=== PATIENT | female | born 1975 | race Caucasian/White ===

== ENCOUNTER 2019-10-08 17:39 | Inpatient (IN) | payer OTHER ==
[~2019-10-08] VITALS: Ht 154.9 cm; Wt 77.1 kg
[2019-10-08 17:39] VITALS: BP 121/72
--- NOTE | 2019-10-08 18:03 | NUR ---
BIBTrish W C/O SEVERE 10/10 BACK PAIN AFTER GETTING OUT OF HER CAR AND FEELING SOMETHING "POP" IN HER UPPER BACK. PT REPORTS HX OF BREAST CA, BONE CA & LIVER CA. PT REPORTS CHRONIC BACK PAIN BUT IT IS USUALLY TOLERABLE. PT STATES SHE IS ABLE TO MOVE BUE & BLE WITH PAIN. DENIES NUMBNESS/TINGLING/INCONTINENCE. PT RECEIVED 150 FENTANYL IN FIELD, WHICH PROVIDED MUCH RELIEF. BED IN LOW POSITION, SIDE RAIL UP X1, AT BEDSIDE.
--- NOTE | 2019-10-08 18:05 | NUR ---
DR. GRIFFITHS AT BEDSIDE
[2019-10-08] MEDS ORDERED: MORPHINE SULFATE 2 MG/ML SYR IVP ONE (18:20)
--- NOTE | 2019-10-08 18:43 | NUR ---
PT TAKEN TO CT VIA [facility] AT THIS TIME.
[2019-10-08] MEDS ORDERED: ONDANSETRON 4 MG/2 ML VIAL IVP ONE (20:25)
[2019-10-08] MEDS ORDERED: MORPHINE SULFATE 4 MG/ML SYR IVP ONE (20:25)
[2019-10-08] MEDS ORDERED: KETOROLAC 30 MG/ML VIAL IVP ONE (20:25)
--- NOTE | 2019-10-08 20:40 | NUR ---
PT AD[facility] RM 120B. TRANSFERRED PT VIA GURNEY, STABLE CONDITION. REPORT GIVEN TO RADHA PEREZ. PT CARE TRANSFERRED TO RECEIVING RN.
--- NOTE | 2019-10-08 20:55 | NUR ---
RECEIVED PATIENT FROM ED VIA GURNEY WITH FAMILY MEMBERS AT SIDE. BEDSIDE REPORT GIVEN BY TD FROM ED. ADMITTED FROM HOME WITH DX OF VERTEBRAL FRACTURE AND BACK PAIN. PATIENT IS AOX4. PATIENT IS AMBULATORY WITH ASSIST. IV ACCESS ON RIGHT AC 20 GAUGE. NO SOB OR DISTRESS NOTED. INITIAL VITAL SIGNS TAKEN, MRSA SWAB DONE AND SENT TO LAB. BELONGINGS CHECKLIST DONE. INITIAL ASSESSMENT DONE. UPDATE BOARD, ORIENTED TO ROOM, BED IN LOW POSITION, CALL LIGHT PLACED WITHIN REACH. WILL CONTINUE TO MONITOR PATIENT.
[2019-10-08] MEDS ORDERED: LORazepam 2 MG/ML VIAL IM/IVP PRN (21:00)
[2019-10-08] MEDS ORDERED: ZOLPIDEM 5 MG TAB PO PRN (21:00)
[2019-10-08] MEDS ORDERED: KETOROLAC 30 MG/ML VIAL IVP PRN (21:00)
[2019-10-08] MEDS ORDERED: HYDROmorphone 1 MG/ML AMP IVP PRN (21:00)
[2019-10-08] MEDS ORDERED: ONDANSETRON 4 MG/2 ML VIAL IM/IVP PRN (21:00)
[2019-10-08] MEDS ORDERED: DOCUSATE SODIUM 100 MG GELCAP PO PRN (21:00)
[2019-10-08] MEDS ORDERED: MORPHINE SULFATE 2 MG/ML SYR IVP PRN (21:00)
[2019-10-08 21:58] LABS: BASOPHILS # (AUTO) 0.1 K/uL (0.00-0.22); EOSINOPHILS # (AUTO) 0.2 K/uL (0-0.4); EOSINOPHILS % (AUTO) 1.7 % (0.0-4.0); HEMATOCRIT 32.8 % (36-48); HEMOGLOBIN 10.5 g/dL (12.0-16.0); LYMPHOCYTES # (AUTO) 1.1 K/uL (2.5-16.5); LYMPHOCYTES % (AUTO) 12.5 % (20.5-51.1); MEAN CORPUSCULAR HEMOGLOBIN 27 pg (27-31); MEAN CORPUSCULAR HGB CONC 32 g/dL (33-37); MEAN CORPUSCULAR VOLUME 85.5 fL (80-94); MONOCYTES # (AUTO) 0.7 K/uL (0.8-1.0); MONOCYTES % (AUTO) 7.8 % (1.7-9.3); NEUTROPHILS # (AUTO) 6.9 K/uL (1.8-7.7); PLATELET COUNT (AUTO) 306 K/uL (140-450); RED BLOOD CELL COUNT(AUTO) 3.84 MIL/uL (4.20-5.40); RED CELL DISTRIBUTION WIDTH 13.2 % (11.6-13.7); WHITE BLOOD COUNT (AUTO) 8.9 K/uL (4.8-10.8)
[2019-10-08 22:17] LABS: ALBUMIN 2.7 g/dL (3.4-5.0); ANION GAP 11.2 (8-16); CARBON DIOXIDE 28.8 mmol/L (21-32); CHOL/HDL RATIO 4.8 (1-4.5); CREATININE 0.8 mg/dL (0.6-1.3); PROTHROMBIN TIME 10.4 secs (10.8-13.4); TOTAL BILIRUBIN 0.3 mg/dL (0.0-1.0)
[2019-10-08] MEDS: NACL 0.9% 1,000 ML IV SCH (22:26)
[2019-10-08 23:18] LABS: MAGNESIUM 1.8 mg/dL (1.8-2.4); PHOSPHORUS 3.8 mg/dL (2.5-4.9); THYROID STIMULATING HORMONE 5.13 uIU/mL (0.34-3.74)
--- NOTE | 2019-10-08 23:40 | NUR ---
R0UNDS DONE. PT EYES CLOSED WITH VISIBLE CHEST RISE AND FALL NOTED. WILL CONTINUE TO MONITOR PATIENT
[2019-10-09 00:30] VITALS: BP 88/52
--- NOTE | 2019-10-09 01:25 | NUR ---
SPOKE TO DR. CHILEL FOR ORDERS FOR LOW BP. NEW ORDER GIVEN FOR BOLUS 500ML.
[2019-10-09] MEDS ORDERED: NACL 0.9% 500 ML IV ONE (01:30)
--- NOTE | 2019-10-09 02:00 | NUR ---
NS BOLUS OF 500ML GIVEN FOR LOW BP.
--- NOTE | 2019-10-09 03:00 | NUR ---
BLOOD PRESSURE REASSESSED AFTER BOLUS. BP OF 104/55 ON RIGHT UPPER ARM.
--- NOTE | 2019-10-09 05:16 | NUR ---
ROUNDS DONE. PT RESTING WITH EYES CLOSED. NO SOB OR DISTRESS NOTED. WILL CONTINUE TO MONITOR PATIENT.
[2019-10-09 06:44] LABS: BASOPHILS # (AUTO) 0.1 K/uL (0.00-0.22); BASOPHILS % (AUTO) 0.9 % (0.0-2.0); EOSINOPHILS # (AUTO) 0.2 K/uL (0-0.4); EOSINOPHILS % (AUTO) 2.2 % (0.0-4.0); HEMATOCRIT 33.5 % (36-48); HEMOGLOBIN 10.9 g/dL (12.0-16.0); LYMPHOCYTES # (AUTO) 0.7 K/uL (2.5-16.5); MEAN CORPUSCULAR HEMOGLOBIN 28 pg (27-31); MEAN CORPUSCULAR HGB CONC 32 g/dL (33-37); MEAN CORPUSCULAR VOLUME 85.2 fL (80-94); MONOCYTES # (AUTO) 0.7 K/uL (0.8-1.0); MONOCYTES % (AUTO) 9.5 % (1.7-9.3); NEUTROPHILS # (AUTO) 5.6 K/uL (1.8-7.7); NEUTROPHILS % (AUTO) 77.4 % (42.2-75.2); PLATELET COUNT (AUTO) 277 K/uL (140-450); RED BLOOD CELL COUNT(AUTO) 3.94 MIL/uL (4.20-5.40); RED CELL DISTRIBUTION WIDTH 13.3 % (11.6-13.7); WHITE BLOOD COUNT (AUTO) 7.3 K/uL (4.8-10.8)
[2019-10-09] MEDS: ACETAMINOPHEN 325 MG TAB PO PRN ×2 (06:54→15:02)
--- NOTE | 2019-10-09 07:01 | NUR ---
PT IN STABLE CONDITION. WILL ENDORSE TO AM SHIFT RN FOR CONTINUITY OF CARE
[2019-10-09 07:15] LABS: CARBON DIOXIDE 27.5 mmol/L (21-32); CREATININE 0.7 mg/dL (0.6-1.3); POTASSIUM 4.5 mmol/L (3.5-5.1)
--- NOTE | 2019-10-09 07:30 | NUR ---
RECEIVED REPORT FROM CATERERS HELPER NURSE. PATIENT IS LYING IN BED WITH HOB ELEVATED. AWAKE, ALERT AND ORIENTED X4. IV INTACT TO RIGHT AC, IVF NS INFUSING AT 60ML/HR. TOLERATING WELL. DENIES PAIN AT THIS TIME. SPOUSE AT BEDSIDE. CALL LIGHT WITHIN REACH.
--- NOTE | 2019-10-09 07:54 | NUR ---
PATIENT HAS BEEN SCREENED AND CATEGORIZED MODERATE NUTRITION RISK. PATIENT WILL BE SEEN WITHIN 3-5 DAYS OF ADMISSION. 10/11/19-10/13/[address]
[2019-10-09 08:00] VITALS: BP 107/66
[2019-10-09] MEDS: NACL 0.9% 1,000 ML IV SCH ×3 (08:06→21:21)
--- NOTE | 2019-10-09 09:00 | NUR ---
PATIENT IS IN BED, ASLEEP, ABLE TO WAKE. DENIES PAIN OR DISCOMFORT. WILL CONTINUE TO MONITOR. AT BEDSIDE.
--- NOTE | 2019-10-09 10:40 | NUR ---
DR. DIEGO AT BEDSIDE.
--- NOTE | 2019-10-09 11:06 | NUR ---
PATIENT IS IN RESTING COMFORTABLY. DENIES ANY PAIN AT THIS TIME.
--- NOTE | 2019-10-09 12:00 | NUR ---
DR. ONTIVEROS (ONCOLOGY) AT BEDSIDE. ALSO SPOKE TO DR. DIEGO, AWAITING FOR DR. ELLIOTT TO SEE PATIENT.
--- NOTE | 2019-10-09 15:00 | NUR ---
PATIENT REPORTS PAIN 8/10 TO BACK AREA AND NAUSEA. MEDICATED WITH ZOFRAN AND DILAUDID ORDERED PRN. PATIENT ALSO REPORTED HEADACHE AND CHILLS, NOTED ELEVATED TEMP OF 100.7. TYLENOL GIVEN ORDERED FOR INCREASED TEMP. WILL CONTINUE TO MONITOR PATIENT.
--- NOTE | 2019-10-09 15:20 | NUR ---
DR. DIEGO AWARE OF ELEVATED TEMP. CONTINUE TO MONITOR PATIENT.
[2019-10-09 16:00] VITALS: BP 108/69
--- NOTE | 2019-10-09 16:56 | NUR ---
Cotton Puller Assessment/Discharge Plan Name: Israel Valerio Home Relationship: Pre-Admission Living Arrangements: Lives with Other Other: family Prior ADL Independent Current Name/Tel: cane, electric wheelchair, no home O2 Healthcare Decision Maker: Patient Advance Directive No Information Taught: Advance Directive Person Taught: Patient Teaching Tools: Computer Generated Print Verbal Factors Affecting Learning: None Participation Level: Active Evaluation: Gestures Understanding Verbalizes Understanding Educator: VINCENZO Bonilla Tentative Discharge Plan Summary: Patient is a 44 year old female with PMHx of metastatic breast cancer to her bones, liver, and lungs. I met with patient and patient's daughter Zeenat at bedside. Patient alert and oriented x4. Patient lives at home with her Israel Valerio and their children. Patient plans to return home upon discharge. Patient does not recall name of pcp. She stated she follows up with oncologist regularly. She does not have any difficulty filling her prescriptions. She is independent with ADLs. She has had good communication with attending MD and nursing staff. She does not have any questions nor concerns at this time. Cotton Puller and/or Validation Architect will follow up as needed. Signature: VINCENZO Bonilla Date: Oct 09, 2019
--- NOTE | 2019-10-09 16:57 | NUR ---
TEMPERATURE RE-ASSESSED 98.7. WILL CONTINUE TO MONITOR. NO S/S OF DISTRESS. AT BEDSIDE.
--- NOTE | 2019-10-09 19:10 | NUR ---
REPORT GIVEN TO JAILER/TRAINING OFFICER NURSE. PATIENT IN STABLE CONDITION.
--- NOTE | 2019-10-09 19:14 | NUR ---
RECEIVED PT IN STABLE CONDITION FROM AM NURSE. AWAKE,ALERT AND ORIENTED X4. MED SURG PT. AMBULATORY. WITH NO DISCOMFORT NOTED. HAS IVF INFUSING WELL ON THE RIGHT AC G#20 .CLEAR AND PATENT. PLAN OF CARE DISCUSSED AND VERBALIZED UNDERSTANDING. BED ON LOW POSITION. DAVY RAILS UP X2. CALL LIGHT PLACED WITHIN EASY REACH. WILL CONTINUE TO MONITOR.
[2019-10-09] MEDS: HYDROmorphone 2 MG TAB PO PRN (19:43)
--- NOTE | 2019-10-09 20:45 | NUR ---
MADE ROUNDS. PT AWAKE. NO MORE C/OMPAIN AFTER PAIN MED GIVEN EARLIER. WILL CONTINUE TO MONITOR.
--- NOTE | 2019-10-09 22:00 | NUR ---
PT IS AWAKE. FAMILY MEMBER AT BEDSIDE. NO C/O ANY DISCOMFORT NOTED.
[2019-10-09 23:44] VITALS: BP 105/50
--- NOTE | 2019-10-10 00:30 | NUR ---
PT IS AWAKE. NO C/O ANY PAIN AT THIS TIME. WILL CONTINUE TO MONITOR.
--- NOTE | 2019-10-10 03:00 | NUR ---
MADE ROUNDS. PT ASLEEP. NO S/S OF ANY DISCOMFORT NOR PAIN NOTED.
[2019-10-10] MEDS: NACL 0.9% 1,000 ML IV SCH (06:01)
--- NOTE | 2019-10-10 06:05 | NUR ---
PT AWAKE. NO C/O ANY PAIN NOTED AT THIS TIME.
--- NOTE | 2019-10-10 07:16 | NUR ---
ENDORSED PT IN STABLE CONDITION TO AM NURSE.
--- NOTE | 2019-10-10 07:30 | NUR ---
PT IS AO X4. BEDSIDE RAILS UP X2, BED LOCKED AND IN LOWEST POSITION, EDUCATED PT SAFETY OF NOT HAVING BLOOD PRESSURE OR ANY BLOOD STICKS TO HER LEFT ARM. PT VERBALIZED UNDERSTANDING.
[2019-10-10 08:00] VITALS: BP 102/63
[2019-10-10 08:57] LABS: BASOPHILS # (AUTO) 0.1 K/uL (0.00-0.22); BASOPHILS % (AUTO) 0.7 % (0.0-2.0); EOSINOPHILS # (AUTO) 0.1 K/uL (0-0.4); EOSINOPHILS % (AUTO) 0.8 % (0.0-4.0); HEMATOCRIT 34.2 % (36-48); HEMOGLOBIN 11.2 g/dL (12.0-16.0); LYMPHOCYTES # (AUTO) 0.9 K/uL (2.5-16.5); LYMPHOCYTES % (AUTO) 10.8 % (20.5-51.1); MEAN CORPUSCULAR HEMOGLOBIN 28 pg (27-31); MEAN CORPUSCULAR HGB CONC 33 g/dL (33-37); MEAN CORPUSCULAR VOLUME 85.6 fL (80-94); MONOCYTES # (AUTO) 0.6 K/uL (0.8-1.0); MONOCYTES % (AUTO) 7.8 % (1.7-9.3); NEUTROPHILS # (AUTO) 6.4 K/uL (1.8-7.7); NEUTROPHILS % (AUTO) 79.9 % (42.2-75.2); PLATELET COUNT (AUTO) 319 K/uL (140-450); RED CELL DISTRIBUTION WIDTH 13.4 % (11.6-13.7)
[2019-10-10 09:40] LABS: ANION GAP 13.9 (8-16); CARBON DIOXIDE 28.3 mmol/L (21-32); CREATININE 0.6 mg/dL (0.6-1.3); POTASSIUM 4.2 mmol/L (3.5-5.1)
[2019-10-10 09:51] LABS: MAGNESIUM 1.9 mg/dL (1.8-2.4); PHOSPHORUS 3.4 mg/dL (2.5-4.9)
--- NOTE | 2019-10-10 10:35 | NUR ---
PER PT'S REQUEST, RN CALLED DR. DIEGO REGARDING WHEN HE WILL COME SEE THE PT. PT MADE AWARE THAT SHE WILL BE SEEN BY THE DOCTOR IN 30 MINS
--- NOTE | 2019-10-10 11:17 | NUR ---
PT LYING IN BED. CHEST VISIBLY RECOILING. NO COMPLAINTS. WILL CONT TO MONITOR
[2019-10-10 12:14] VITALS: BP 109/68
[2019-10-10] MEDS: HYDROmorphone 2 MG TAB PO PRN (12:15)
[2019-10-10] MEDS ORDERED: HYDROcodone/APAP 5/325 MG 1 TAB TAB PO PRN (13:45)
--- NOTE | 2019-10-10 14:52 | NUR ---
PT LEFT AMA. DR. DIEGO WAS PRESENT TO EXPLAIN RISKS AND BENEFITS TO PATIENT. PATIENT LEFT HOME WITH FAMILY. ID BAND AND IV WERE SIGNED. RN AND NURSE STUDENT HELPED PATIENT MAKE SURE THAT ALL OF HER BELONGINGS ARE PRESENT AND THAT SHE DOESN'T LEAVE HER BELONGINGS BEHIND. AMA FORM WAS SIGNED BY PATIENT AND DR. DIEGO Addendum: 10/10/19 at 1510 by Agency 01 ANA PEREZ INCIDENT REPORT WAS SUBMITTED ON [employer]
--- NOTE | 2019-10-10 15:00 | NUR ---
SPOKE TO THE DIRECTOR OF QUALITY CONTROL AND SHE TOLD RN THAT THEY HAVEN'T RECEIVED A RESPONSE FROM THEIR DON AND FOR RN TO CALL THEM BACK WITHIN 30 MINS TO ONE HOUR Addendum: 10/10/19 at 1509 by Agency 01 ANA RN WRONG PT
== END 2019-10-10 16:40 | disposition left against medical advice (07) | DRG 543 ==
LOC: MED 17:39 → MTU 20:29
PROVIDERS: ADMIT General Practice; ATTEND General Practice
DX: M84.58XA Pathological fracture in neoplastic disease, other specified site, initial encounter for fracture (principal); C79.51 Secondary malignant neoplasm of bone; C78.7 Secondary malignant neoplasm of liver and intrahepatic bile duct; D64.9 Anemia, unspecified; Z53.29 Procedure and treatment not carried out because of patient's decision for other reasons; C50.919 Malignant neoplasm of unspecified site of unspecified female breast; Z83.3 Family history of diabetes mellitus
CPT/HCPCS: 36415; 72128; 72131; 80048; 80053; 83036; 83690; 83735; 84100; 84443; 85025; 85610; 85730; 87081; 93005; 96374; 96375; 96376; 99285; J1170; J1885; J2270; J2405; J7030